=== PATIENT | male | born 1945 | race Caucasian/White ===

== ENCOUNTER → 2017-04-14 | Outpatient (CLI) | payer MEDICARE, BC | END | disposition home or self-care (01) | LOC: PCVCCLINIC 11:50 | PROVIDERS: ATTEND Internal Medicine Cardiovascular Disease | DX: I25.10 Atherosclerotic heart disease of native coronary artery without angina pectoris (principal); I10 Essential (primary) hypertension; I25.5 Ischemic cardiomyopathy; E78.00 Pure hypercholesterolemia, unspecified; I21.3 ST elevation (STEMI) myocardial infarction of unspecified site; Z95.5 Presence of coronary angioplasty implant and graft; Z79.82 Long term (current) use of aspirin; Z79.899 Other long term (current) drug therapy; Z85.46 Personal history of malignant neoplasm of prostate; Z87.891 Personal history of nicotine dependence | CPT/HCPCS: 85610; 93005; G0463 ==

== ENCOUNTER → 2018-08-31 | Outpatient (CLI) | payer MEDICARE, BC | END | disposition home or self-care (01) | LOC: PCVCCLINIC 16:19 | PROVIDERS: ATTEND Internal Medicine Cardiovascular Disease | DX: I25.10 Atherosclerotic heart disease of native coronary artery without angina pectoris (principal); I10 Essential (primary) hypertension; E78.00 Pure hypercholesterolemia, unspecified; I25.5 Ischemic cardiomyopathy; E04.1 Nontoxic single thyroid nodule; Z87.891 Personal history of nicotine dependence; Z79.82 Long term (current) use of aspirin | CPT/HCPCS: 80061; 93005; G0463 ==

== ENCOUNTER → 2018-11-03 | Outpatient (CLI) | payer MEDICARE, BC ==
--- NOTE | 2018-11-03 11:29 | PCVCIMAG ---
EXAM: ULTRASOUND OF THE THYROID INDICATION: Thyroid nodules. FINDINGS: The right thyroid lobe measures 2.7 x 2.8 x 5.8 cm. The left thyroid lobe measures 2.1 x 2.4 x 4.9 cm. 1.9 x 2.5 x 2.7 cm solid hyperechoic nodule mid right thyroid lobe. 0.4 x 0.7 x 0.6 cm hypoechoic likely cystic nodule right lower pole. 0.4 x 0.5 x 0.6 cm solid hypoechoic nodule left mid pole. 0.4 x 0.7 x 0.7 cm solid nodule inferior pole left thyroid lobe. IMPRESSION: Several nodules in the thyroid as detailed above. The dominant nodule measures 2.7 cm and is solid/hyperechoic in the mid right thyroid lobe. Further evaluation by ENT is suggested. No prior studies available for comparison. LOC:[id number]
--- NOTE | 2018-11-04 09:46 | PCVCIMAG ---
APPROVED REPORT Study performed: 11/03/2018 10:17:23 Exam: Stress Echocardiogram Indication: CAD s/p PA,Stent to the LAD Patient Location: Echo lab Stress Nurse: Jolene Negrete RN Room #: 1 Status: routine Ht: 6 ft 0 in HR: 56 bpm BP: 142/82 mmHg Rhythm: NSR, First degree AV Block Medical History Medical History: CAD s/p PA, Stent,, HTN, Cardiomyopathy Medications: Metoprolol Cardiac Risk Factors: HTN, Hyperlipidemia Previous Cardiac Procedures: PCIMyocardial infarction Pretest Chest Pain Characteristics: No chest pain Exercise History: Physically active Procedure The patient underwent an Exercise Stress Test using the Jordan Protocol. Blood pressure, heart rate, and EKG were monitored. An Echocardiogram was performed by robotics technician in four stages in quad fashion. At peak stress, four selected images were obtained and placed side by side with resting images for comparison. Stress Test Details Stress Test: Exercise stress testing was performed using a Jordan protocol. HR Resting HR: 56 bpmMax Heart Rate (APMHR): 149 bpm Max HR Achieved: 136 bpmTarget HR (85% APMHR): 126 bpm % of APMHR: 91 Recovery HR: 69 bpm HR response to stress: Normal HR response to stress BP Resting BP: 142/82 mmHg Max BP: 194/90 mmHg Recovery BP: 172/86 mmHg BP response to stress: Normal blood pressure response to stress. Meds were held. ECG Resting ECG: Sinus Rhythm, 1st degree AV block Stress ECG: Sinus Rhythm, 1st degree AV block ST Change: Non-ischemic Arrhythmia: Rare PVC,PAC Recovery ECG: Sinus Rhythm, 1st degree AV block Recovery ST Change: Non-ischemic Recovery Arrhythmia: None Clinical Reason for Termination: Maximal effort Stress Symptoms: fatigue Exercise duration: 10 min 00 sec Highest Stage Achieved: Stage 4: 4.2 mph at 16% grade. Exercise capacity: 13.4 METs Overall Exercise Capacity for Age: Good Scale: Active Angina Score: None No complications. Stress ECG Conclusion The patient exercised according to the JORDAN protocol for 10:00 mins; achieving a work level of 13.4 METS. The resting heart rate of 53 bpm jorge to a maximum heart rate of 136 bpm. This value represent 91% of the maximal, age-predicted heart rate. The resting blood pressure of 142/82 mmHg, jorge to a maximum blood pressure of 194/90 mmHg. The exercise test was stopped due to fatigue . Pre-Stress Echo The resting Echocardiogram showed normal left ventricular contractility with an estimated Ejection Fraction of about 55-60%. The resting Echocardiogram demonstrated wall motion abnormality in the distal septal wall and apex consistent with a known old PA . Normal wall motion in all segments on baseline images except as mentioned.. Post-Stress Echo The stress Echocardiogram showed normal left ventricular contractility with an estimated Ejection Fraction of about 65-70%. The stress Echocardiogram demonstrated wall motion abnormality in the distal septum and apex (fixed defect) . Normal augmentation of wall motion in all segments on post stress images except for the fixed defect from the old PA. Conclusion Clinical Response: Non-ischemic Exercise Capacity: Superior Stress ECG Response: Non-ischemic Stress Echo Images: Non-ischemic No clinical, EKG or echocardiographic evidence for ischemia. No echocardiographic evidence for exercise induced ischemia. Normal stress echocardiogram with maximal exercise stress. <Conclusion> No clinical, EKG or echocardiographic evidence for ischemia. No echocardiographic evidence for exercise induced ischemia. Normal stress echocardiogram with maximal exercise stress.
== END | disposition home or self-care (01) ==
LOC: PCVCIMAG 09:53
PROVIDERS: ATTEND Internal Medicine Cardiovascular Disease
DX: E04.1 Nontoxic single thyroid nodule (principal); I25.10 Atherosclerotic heart disease of native coronary artery without angina pectoris; I25.5 Ischemic cardiomyopathy; I10 Essential (primary) hypertension
CPT/HCPCS: 76536; 93325; 93351

== ENCOUNTER → 2019-07-22 | Outpatient (CLI) | payer MEDICARE, BC | END | disposition home or self-care (01) | LOC: PCVCCLINIC 09:30 | PROVIDERS: ATTEND Internal Medicine Cardiovascular Disease | DX: I25.10 Atherosclerotic heart disease of native coronary artery without angina pectoris (principal); E78.00 Pure hypercholesterolemia, unspecified; I10 Essential (primary) hypertension; E04.2 Nontoxic multinodular goiter; Z87.891 Personal history of nicotine dependence; Z79.82 Long term (current) use of aspirin | CPT/HCPCS: 36415; 80061; 93005; G0463 ==